=== PATIENT | female | born 1990 | race Caucasian/White ===

== ENCOUNTER → 2017-10-28 14:13 | Outpatient (CLI) | payer OTHER, SELFPAY ==
--- NOTE | 2017-10-28 14:15 | US_ITS ---
US breast LT complete . ORDERING PHYSICIAN : Leon Cortes MD PATIENT AGE: 26 years GENDER: Female COMPARISON: No previous breast studies INDICATION: Palpable area left breast (Location of Palpable Site was not specified by technologist ) TECHNIQUE: Standard CC and MLO images were obtained. R2 CAD reviewed. FINDINGS: Left Breast:Ultrasound demonstrates consistent dense breast pattern throughout compatible with the patient's young age. No architectural distortion. No cyst or discrete solid mass evident. Axillary survey demonstrates scattered benign-appearing axillary lymph nodes. Most generous measuring 1.8 cm length . No significant findings overall IMPRESSION:.... Negative ultrasound left breast. No cyst or discrete solid mass evident with ultrasound survey entire breast. . If palpable area should progress follow-up study in interval be suggested. Otherwise routine follow-up adequate BI-RADS Category: 1 Negative RECOMMENDED FOLLOW-UP: 1YR - 1 YEAR FOLLOW-UP (A letter has been sent to the patient regarding results of the study.)
--- NOTE | 2017-10-28 14:15 | XR_ITS ---
XR DEXA axial skeleton HISTORY: ITS.REASON: [facility] use of depo provera ORDERING PHYSICIAN: Leon Cortes MD PATIENT AGE: 26 years COMPARISON: 11/28/2011 FINDINGS: The BMD measured at the left femoral neck is 0.686 g/cm squared with a T score of -2.5. This is considered Osteoporotic according to the World Health Organization criteria. Fracture risk is High. Treatment is advised. L1-L4 density has a T score of -1.5. The lumbar spine density has increased by 9% and the hip density has increased by 1% compared to the previous study IMPRESSION: Osteoporosis with high fracture risk. Treatment suggested. Recommend follow-up exam in 2019
== END ==
PROVIDERS: Visit Provider Obstetrics & Gynecology
DX: N63.20 Unspecified lump in the left breast, unspecified quadrant (principal); Z79.3 Long term (current) use of hormonal contraceptives
CPT/HCPCS: 76641; 77080